=== PATIENT | female | born 1935 | race Caucasian/White ===

== ENCOUNTER 2016-10-30 16:07 | Observation (INO) | payer MEDICARE ==
[~2016-10-30 16:07] MED LIST: ASPIRIN EC81 MG PO; AUGMENTIN TAB875 MG PO; COMBIVENT0.074 GM/I INH; DIOVAN 80 MG TA80 MG PO; ISOSORBIDE MONO30 MG PO; LASIX TAB 20 MG20 MG PO; LOPRESSOR 25 MG25 MG PO; MIRALAX17 GM PO; NITROSTAT 0.40.4 MG SL; PERFOROMIS20 MCG/2 M NEB; PHENERGAN W/CO473 M1 PO; PREDNISONE 10 M10 MG PO; PROAIR HFA8.5 GM INH; PULMICORT0.5 MG/2 M NEB; ROXICODONE5 MG PO; SENOKOT-S TABL1 EACH PO; SINGULAIR10 MG PO; TYLENOL 325MG325 MG PO; VALSARTAN-HCTZ1 EAC1 PO
[2016-10-30 16:50] LABS: HEMOGLOBIN 11.8 gm/dl (12.3-15.3); RED BLOOD COUNT 3.88 M/UL (4.00-5.10); WHITE BLOOD COUNT 10.6 K/UL (4.5-11.0)
[2016-10-30 17:15] LABS: BUN/CREATININE RATIO 16 (0-10)
[2017-03-07] MEDS ORDERED: PROVENTIL HFA 61 INH INH (04:03)
[2017-03-07] MEDS ORDERED: DIUREX WATER P1 EACH PO ×2 (04:05→04:06)
== END 2016-10-31 13:30 | disposition home or self-care (01) ==
LOC: ER1 16:07 → ZEROF 20:48
PROVIDERS: Student in an Organized Health Care Education/Training Program; ADMIT Hospitalist
DX: S22.009A Unspecified fracture of unspecified thoracic vertebra, initial encounter for closed fracture (principal); J44.1 Chronic obstructive pulmonary disease with (acute) exacerbation; I71.4 Abdominal aortic aneurysm, without rupture; E78.5 Hyperlipidemia, unspecified; I27.2 Other secondary pulmonary hypertension; I11.0 Hypertensive heart disease with heart failure; I50.30 Unspecified diastolic (congestive) heart failure; E11.9 Type 2 diabetes mellitus without complications; J18.9 Pneumonia, unspecified organism; J90 Pleural effusion, not elsewhere classified; J45.909 Unspecified asthma, uncomplicated; F41.9 Anxiety disorder, unspecified; I49.5 Sick sinus syndrome; J98.11 Atelectasis; J96.91 Respiratory failure, unspecified with hypoxia; Z79.82 Long term (current) use of aspirin; Z79.891 Long term (current) use of opiate analgesic; Z79.899 Other long term (current) drug therapy; Z95.0 Presence of cardiac pacemaker; Z87.19 Personal history of other diseases of the digestive system; Z88.6 Allergy status to analgesic agent; Z88.8 Allergy status to other drugs, medicaments and biological substances; Z86.79 Personal history of other diseases of the circulatory system; Z87.891 Personal history of nicotine dependence; X58.XXXA Exposure to other specified factors, initial encounter
CPT/HCPCS: 36415; 80053; 81001; 82550; 82553; 83690; 83874; 84484; 85025; 93005; 94640; 94664; 96365; 96367; 96375; 96376; 99285; G0378; J0456; J0696; J1956; J2270; J2405; J7030; J7050; Q9962

== ENCOUNTER → 2016-11-02 | Outpatient (CLI) | payer MEDICARE ==
[~2016-11-02] MED LIST changes: +ALBUTEROL0.63 MG/3 INH; +ALENDRONATE SOD70 MG PO; +ASPIR-LOW81 MG PO; +BUSPIRONE HCL15 MG PO; +DIUREX WATER P1 EACH PO; +FLEXERIL 10 MG10 MG PO; +GABAPENTIN100 MG PO; +IPRAT-ALBUT 0.5-3 ML INH; +LASIX20 MG PO; +LIDODERM PATCH 51 EA EXT; +LORTAB 7.5-3251 EACH PO; +MEDROL DOSEPAK 24 MG PO; +NEURONTIN 100100 MG PO; +NORCO 5-325 TA1 EACH PO; +PERCOCET 5-3251 EACH PO; +PROVENTIL HFA 61 INH INH; +PULMICORT0.25 MG/1 INH; +SYMBICORT 160-1 INHA INH; +WELLBUTRIN SR100 MG PO
== END ==
LOC: OPSV2 11:00
DX: Z01.812 Encounter for preprocedural laboratory examination (principal); S22.089A Unspecified fracture of T11-T12 vertebra, initial encounter for closed fracture
CPT/HCPCS: 81001; 87077; 87086; 87186

== ENCOUNTER 2016-11-06 10:04 | Day surgery (SDC) | payer MEDICARE ==
[~2016-11-06] VITALS: Ht 157.5 cm; Wt 72.6 kg
[~2016-11-06 10:04] MED LIST changes: -ALBUTEROL0.63 MG/3 INH; -ALENDRONATE SOD70 MG PO; -ASPIR-LOW81 MG PO; -BUSPIRONE HCL15 MG PO; -DIUREX WATER P1 EACH PO; -FLEXERIL 10 MG10 MG PO; -GABAPENTIN100 MG PO; -IPRAT-ALBUT 0.5-3 ML INH; -LASIX20 MG PO; -LIDODERM PATCH 51 EA EXT; -LORTAB 7.5-3251 EACH PO; -MEDROL DOSEPAK 24 MG PO; -NEURONTIN 100100 MG PO; -NORCO 5-325 TA1 EACH PO; -PERCOCET 5-3251 EACH PO; -PROVENTIL HFA 61 INH INH; -PULMICORT0.25 MG/1 INH; -SYMBICORT 160-1 INHA INH; -WELLBUTRIN SR100 MG PO
[2016-11-06] MEDS ORDERED: PULMICORT0.25 MG/1 INH (11:32)
[2016-11-06] MEDS ORDERED: PERCOCET 5-3251 EACH PO (11:34)
[2016-11-07 05:56] LABS: HEMOGLOBIN 11.7 gm/dl (12.3-15.3); RED BLOOD COUNT 3.82 M/UL (4.00-5.10); WHITE BLOOD COUNT 10.3 K/UL (4.5-11.0)
[2016-11-07 06:12] LABS: BUN/CREATININE RATIO 13 (0-10)
[2016-11-08 04:26] LABS: HEMOGLOBIN 11.8 gm/dl (12.3-15.3); RED BLOOD COUNT 3.85 M/UL (4.00-5.10); WHITE BLOOD COUNT 10.3 K/UL (4.5-11.0)
[2016-11-08 04:50] LABS: BUN/CREATININE RATIO 18 (0-10)
[2017-03-07] MEDS ORDERED: PROVENTIL HFA 61 INH INH (04:03)
[2017-03-07] MEDS ORDERED: DIUREX WATER P1 EACH PO ×2 (04:05→04:06)
== END 2016-11-08 16:50 | disposition home or self-care (01) ==
LOC: OR 10:04 → M/S 16:16 → OR 11-08 16:50
PROVIDERS: Orthopaedic Surgery
PROC: 0PU43JZ Supplement Thoracic Vertebra with Synthetic Substitute, Percutaneous Approach (ICD-10-PCS; 2016-11-06)
PROC: 0PS43ZZ Reposition Thoracic Vertebra, Percutaneous Approach (ICD-10-PCS; principal; 2016-11-06 15:00)
DX: S22.089A Unspecified fracture of T11-T12 vertebra, initial encounter for closed fracture (principal); M81.0 Age-related osteoporosis without current pathological fracture; J44.9 Chronic obstructive pulmonary disease, unspecified; J45.909 Unspecified asthma, uncomplicated; J96.91 Respiratory failure, unspecified with hypoxia; I71.2 Thoracic aortic aneurysm, without rupture; I49.5 Sick sinus syndrome; I47.2 Ventricular tachycardia; I27.2 Other secondary pulmonary hypertension; I10 Essential (primary) hypertension; I07.1 Rheumatic tricuspid insufficiency; Z87.19 Personal history of other diseases of the digestive system; Z79.82 Long term (current) use of aspirin; Z79.899 Other long term (current) drug therapy; Z95.0 Presence of cardiac pacemaker; Z88.6 Allergy status to analgesic agent; Z88.8 Allergy status to other drugs, medicaments and biological substances; Z87.440 Personal history of urinary (tract) infections; X58.XXXA Exposure to other specified factors, initial encounter
CPT/HCPCS: 36415; 80048; 81001; 85025; 94640; 94664; 97116; 97530; J0690; J2250; J2270; J2405; J3010; J7030; J7040; J7120; Q9962

== ENCOUNTER → 2016-11-14 | Outpatient (CLI) | payer MEDICARE ==
[~2016-11-14] MED LIST changes: +ALBUTEROL0.63 MG/3 INH; +ALENDRONATE SOD70 MG PO; +ASPIR-LOW81 MG PO; +BUSPIRONE HCL15 MG PO; +DIUREX WATER P1 EACH PO; +FLEXERIL 10 MG10 MG PO; +GABAPENTIN100 MG PO; +IPRAT-ALBUT 0.5-3 ML INH; +LASIX20 MG PO; +LIDODERM PATCH 51 EA EXT; +LORTAB 7.5-3251 EACH PO; +MEDROL DOSEPAK 24 MG PO; +NEURONTIN 100100 MG PO; +NORCO 5-325 TA1 EACH PO; +PERCOCET 5-3251 EACH PO; +PROVENTIL HFA 61 INH INH; +PULMICORT0.25 MG/1 INH; +SYMBICORT 160-1 INHA INH; +WELLBUTRIN SR100 MG PO
== END ==
LOC: KOH-I 14:11
DX: S32.050A Wedge compression fracture of fifth lumbar vertebra, initial encounter for closed fracture (principal); S32.049A Unspecified fracture of fourth lumbar vertebra, initial encounter for closed fracture; M47.816 Spondylosis without myelopathy or radiculopathy, lumbar region
CPT/HCPCS: 72131

== ENCOUNTER → 2016-11-17 | Outpatient (CLI) | payer MEDICARE | LOC: EXRD 09:30 → KOH-I 11:04 | DX: S32.040A Wedge compression fracture of fourth lumbar vertebra, initial encounter for closed fracture (principal); M81.0 Age-related osteoporosis without current pathological fracture; M85.88 Other specified disorders of bone density and structure, other site | CPT/HCPCS: 77080 ==

== ENCOUNTER 2016-11-20 10:45 | Observation (INO) | payer MEDICARE ==
[~2016-11-20] VITALS: Ht 157.5 cm; Wt 75.8 kg
[~2016-11-20 10:45] MED LIST changes: -ALBUTEROL0.63 MG/3 INH; -ALENDRONATE SOD70 MG PO; -ASPIR-LOW81 MG PO; -BUSPIRONE HCL15 MG PO; -DIUREX WATER P1 EACH PO; -FLEXERIL 10 MG10 MG PO; -GABAPENTIN100 MG PO; -IPRAT-ALBUT 0.5-3 ML INH; -LASIX20 MG PO; -LIDODERM PATCH 51 EA EXT; -LORTAB 7.5-3251 EACH PO; -MEDROL DOSEPAK 24 MG PO; -NEURONTIN 100100 MG PO; -NORCO 5-325 TA1 EACH PO; -PROVENTIL HFA 61 INH INH; -SYMBICORT 160-1 INHA INH; -WELLBUTRIN SR100 MG PO
[2016-11-20 10:46] LABS: HEMOGLOBIN 12.3 gm/dl (12.3-15.3); RED BLOOD COUNT 4.07 M/UL (4.00-5.10); WHITE BLOOD COUNT 11.7 K/UL (4.5-11.0)
[2016-11-20 11:49] LABS: BUN/CREATININE RATIO 20 (0-10)
[2016-11-21 04:40] LABS: HEMOGLOBIN 11.6 gm/dl (12.3-15.3); RED BLOOD COUNT 3.84 M/UL (4.00-5.10); WHITE BLOOD COUNT 11.2 K/UL (4.5-11.0)
[2016-11-21 05:15] LABS: BUN/CREATININE RATIO 16 (0-10)
[2016-11-24] MEDS ORDERED: FLEXERIL 10 MG10 MG PO (12:43)
[2017-03-07] MEDS ORDERED: PROVENTIL HFA 61 INH INH (04:03)
[2017-03-07] MEDS ORDERED: DIUREX WATER P1 EACH PO ×2 (04:05→04:06)
== END 2016-11-24 22:10 | disposition home or self-care (01) ==
LOC: OR 10:45 → ZEROF 16:15 → OR 16:15 → M/S 16:15 → ZEROF 11-23 10:30 → OR 11-23 10:30 → M/S 11-24 22:10
PROVIDERS: ADMIT Orthopaedic Surgery
PROC: 0QU03JZ Supplement Lumbar Vertebra with Synthetic Substitute, Percutaneous Approach (ICD-10-PCS; 2016-11-20)
PROC: 0QB03ZX Excision of Lumbar Vertebra, Percutaneous Approach, Diagnostic (ICD-10-PCS; 2016-11-20)
PROC: 0QS03ZZ Reposition Lumbar Vertebra, Percutaneous Approach (ICD-10-PCS; principal; 2016-11-20 12:30)
DX: M80.08XA Age-related osteoporosis with current pathological fracture, vertebra(e), initial encounter for fracture (principal); J44.9 Chronic obstructive pulmonary disease, unspecified; I27.2 Other secondary pulmonary hypertension; J96.91 Respiratory failure, unspecified with hypoxia; J45.909 Unspecified asthma, uncomplicated; I10 Essential (primary) hypertension; E78.5 Hyperlipidemia, unspecified; E11.9 Type 2 diabetes mellitus without complications; Z79.899 Other long term (current) drug therapy; Z79.891 Long term (current) use of opiate analgesic; Z86.79 Personal history of other diseases of the circulatory system; Z87.19 Personal history of other diseases of the digestive system; Z99.81 Dependence on supplemental oxygen; Z95.0 Presence of cardiac pacemaker; Z79.82 Long term (current) use of aspirin
CPT/HCPCS: 36415; 80048; 82550; 82553; 83036; 84484; 85025; 85027; 93005; 94640; 94664; 97110; 97116; 97530; G0378; J0690; J1100; J2270; J2405; J7120; Q9962

== ENCOUNTER 2016-12-04 09:51 | Day surgery (SDC) | payer MEDICARE ==
[~2016-12-04] VITALS: Ht 157.5 cm; Wt 90.3 kg
[~2016-12-04 09:51] MED LIST changes: +FLEXERIL 10 MG10 MG PO
[2016-12-05 06:38] LABS: HEMOGLOBIN 12.8 gm/dl (12.3-15.3); RED BLOOD COUNT 4.21 M/UL (4.00-5.10); WHITE BLOOD COUNT 12.1 K/UL (4.5-11.0)
[2016-12-05 07:56] LABS: BUN/CREATININE RATIO 17 (0-10)
[2017-03-07] MEDS ORDERED: PROVENTIL HFA 61 INH INH (04:03)
[2017-03-07] MEDS ORDERED: DIUREX WATER P1 EACH PO ×2 (04:05→04:06)
== END 2016-12-05 14:07 | disposition home or self-care (01) ==
LOC: OR 09:51 → M/S 09:51 → OR 12:15 → M/S 15:17 → OR 12-05 14:07
PROVIDERS: Orthopaedic Surgery
PROC: 0PU43JZ Supplement Thoracic Vertebra with Synthetic Substitute, Percutaneous Approach (ICD-10-PCS; 2016-12-04)
PROC: 0PB43ZX Excision of Thoracic Vertebra, Percutaneous Approach, Diagnostic (ICD-10-PCS; 2016-12-04)
PROC: 0PS43ZZ Reposition Thoracic Vertebra, Percutaneous Approach (ICD-10-PCS; principal; 2016-12-04 12:15)
DX: S22.089A Unspecified fracture of T11-T12 vertebra, initial encounter for closed fracture (principal); M81.0 Age-related osteoporosis without current pathological fracture; J44.9 Chronic obstructive pulmonary disease, unspecified; J45.909 Unspecified asthma, uncomplicated; J96.91 Respiratory failure, unspecified with hypoxia; I71.4 Abdominal aortic aneurysm, without rupture; I49.5 Sick sinus syndrome; I27.2 Other secondary pulmonary hypertension; I10 Essential (primary) hypertension; G89.29 Other chronic pain; Z87.19 Personal history of other diseases of the digestive system; Z95.0 Presence of cardiac pacemaker; Z79.82 Long term (current) use of aspirin; Z79.891 Long term (current) use of opiate analgesic; Z79.899 Other long term (current) drug therapy; Z99.81 Dependence on supplemental oxygen
CPT/HCPCS: 20240; 80048; 85025; 94640; 94664; J0690; J1100; J2001; J2710; J3010; J7120; Q9962

== ENCOUNTER → 2016-12-22 | Outpatient (CLI) | payer MEDICARE ==
[~2016-12-22] MED LIST changes: +ALBUTEROL0.63 MG/3 INH; +ALENDRONATE SOD70 MG PO; +ASPIR-LOW81 MG PO; +BUSPIRONE HCL15 MG PO; +DIUREX WATER P1 EACH PO; +GABAPENTIN100 MG PO; +IPRAT-ALBUT 0.5-3 ML INH; +LASIX20 MG PO; +LIDODERM PATCH 51 EA EXT; +LORTAB 7.5-3251 EACH PO; +MEDROL DOSEPAK 24 MG PO; +NEURONTIN 100100 MG PO; +NORCO 5-325 TA1 EACH PO; +PROVENTIL HFA 61 INH INH; +SYMBICORT 160-1 INHA INH; +WELLBUTRIN SR100 MG PO
== END ==
LOC: LAB 14:38
DX: M81.0 Age-related osteoporosis without current pathological fracture (principal)
CPT/HCPCS: 36415; 82310; 84439; 84443

== ENCOUNTER → 2016-12-26 | Outpatient (CLI) | payer MEDICARE | LOC: KOH-I 14:00 | DX: S22.070A Wedge compression fracture of T9-T10 vertebra, initial encounter for closed fracture (principal); J98.11 Atelectasis; R91.8 Other nonspecific abnormal finding of lung field; S22.089A Unspecified fracture of T11-T12 vertebra, initial encounter for closed fracture; S32.019A Unspecified fracture of first lumbar vertebra, initial encounter for closed fracture | CPT/HCPCS: 72128 ==

== ENCOUNTER 2017-01-07 14:28 | Inpatient (IN) | payer MEDICARE ==
[~2017-01-07] VITALS: Ht 157.5 cm; Wt 77.8 kg
[~2017-01-07 14:28] MED LIST changes: -ALBUTEROL0.63 MG/3 INH; -ALENDRONATE SOD70 MG PO; -ASPIR-LOW81 MG PO; -BUSPIRONE HCL15 MG PO; -DIUREX WATER P1 EACH PO; -GABAPENTIN100 MG PO; -IPRAT-ALBUT 0.5-3 ML INH; -LASIX20 MG PO; -LIDODERM PATCH 51 EA EXT; -LORTAB 7.5-3251 EACH PO; -MEDROL DOSEPAK 24 MG PO; -NEURONTIN 100100 MG PO; -NORCO 5-325 TA1 EACH PO; -PROVENTIL HFA 61 INH INH; -SYMBICORT 160-1 INHA INH; -WELLBUTRIN SR100 MG PO
[2017-01-07 15:17] LABS: HEMOGLOBIN 12.4 gm/dl (12.3-15.3); RED BLOOD COUNT 4.04 M/UL (4.00-5.10)
[2017-01-07 15:36] LABS: BUN/CREATININE RATIO 21 (0-10)
[2017-01-08 10:52] LABS: HEMOGLOBIN 11.9 gm/dl (12.3-15.3); RED BLOOD COUNT 3.9 M/UL (4.00-5.10)
[2017-01-08] MEDS ORDERED: ALENDRONATE SOD70 MG PO (15:08)
[2017-01-08] MEDS ORDERED: GABAPENTIN100 MG PO (15:09)
[2017-01-08] MEDS ORDERED: LORTAB 7.5-3251 EACH PO (15:10)
[2017-01-08] MEDS ORDERED: NEURONTIN 100100 MG PO (15:10)
[2017-01-08] MEDS ORDERED: BUSPIRONE HCL15 MG PO (15:13)
[2017-01-09 06:01] LABS: HEMOGLOBIN 11.2 gm/dl (12.3-15.3); RED BLOOD COUNT 3.7 M/UL (4.00-5.10)
[2017-01-11 06:32] LABS: HEMOGLOBIN 11.7 gm/dl (12.3-15.3); RED BLOOD COUNT 3.88 M/UL (4.00-5.10); WHITE BLOOD COUNT 15.5 K/UL (4.5-11.0)
[2017-01-13 05:31] LABS: HEMOGLOBIN 12.1 gm/dl (12.3-15.3); RED BLOOD COUNT 3.93 M/UL (4.00-5.10); WHITE BLOOD COUNT 12.9 K/UL (4.5-11.0)
[2017-01-14 06:32] LABS: HEMOGLOBIN 12.5 gm/dl (12.3-15.3); RED BLOOD COUNT 4.14 M/UL (4.00-5.10); WHITE BLOOD COUNT 12.2 K/UL (4.5-11.0)
[2017-01-16 04:12] LABS: HEMOGLOBIN 12.7 gm/dl (12.3-15.3); RED BLOOD COUNT 4.19 M/UL (4.00-5.10); WHITE BLOOD COUNT 14.4 K/UL (4.5-11.0)
[2017-01-17 06:28] LABS: BUN/CREATININE RATIO 44 (0-10)
[2017-01-17] MEDS ORDERED: SYMBICORT 160-1 INHA INH (12:49)
[2017-01-17] MEDS ORDERED: MEDROL DOSEPAK 24 MG PO (12:50)
[2017-01-17] MEDS ORDERED: PROAIR HFA8.5 GM INH (12:51)
[2017-01-17] MEDS ORDERED: WELLBUTRIN SR100 MG PO (12:51)
[2017-01-17] MEDS ORDERED: IPRAT-ALBUT 0.5-3 ML INH (12:53)
[2017-01-17] MEDS ORDERED: LIDODERM PATCH 51 EA EXT (12:53)
[2017-03-07] MEDS ORDERED: PROVENTIL HFA 61 INH INH (04:03)
[2017-03-07] MEDS ORDERED: DIUREX WATER P1 EACH PO ×2 (04:05→04:06)
== END 2017-01-17 14:41 | disposition home health service (06) | DRG 292 ==
LOC: ER1 14:28 → ZEROF 17:34 → M/S 17:34
PROVIDERS: Emergency Medicine; Internal Medicine; ADMIT Emergency Medicine
DX: I11.0 Hypertensive heart disease with heart failure (principal); J45.901 Unspecified asthma with (acute) exacerbation; J96.11 Chronic respiratory failure with hypoxia; I31.3 Pericardial effusion (noninflammatory); J98.11 Atelectasis; I50.33 Acute on chronic diastolic (congestive) heart failure; I27.2 Other secondary pulmonary hypertension; J20.9 Acute bronchitis, unspecified; I49.5 Sick sinus syndrome; I71.2 Thoracic aortic aneurysm, without rupture; R07.89 Other chest pain; I07.1 Rheumatic tricuspid insufficiency; M94.0 Chondrocostal junction syndrome [Tietze]; G89.29 Other chronic pain; M54.9 Dorsalgia, unspecified; E66.9 Obesity, unspecified; F32.9 Major depressive disorder, single episode, unspecified; Z95.0 Presence of cardiac pacemaker; Z77.22 Contact with and (suspected) exposure to environmental tobacco smoke (acute) (chronic); Z87.311 Personal history of (healed) other pathological fracture; Z72.3 Lack of physical exercise; Z68.31 Body mass index [BMI] 31.0-31.9, adult; Z99.81 Dependence on supplemental oxygen; Z79.51 Long term (current) use of inhaled steroids; Z79.891 Long term (current) use of opiate analgesic; Z79.82 Long term (current) use of aspirin; Z79.899 Other long term (current) drug therapy; Z88.6 Allergy status to analgesic agent; Z88.5 Allergy status to narcotic agent; Z98.890 Other specified postprocedural states; Z82.49 Family history of ischemic heart disease and other diseases of the circulatory system; Z83.3 Family history of diabetes mellitus
CPT/HCPCS: ECHO; 36415; 71010; 71020; 71250; 80048; 80053; 81001; 82550; 82553; 83735; 83874; 83880; 84439; 84443; 84484; 85025; 85027; 85379; 87040; 87070; 87205; 93005; 93306; 94640; 94664; 96365; 96367; 96375; 96376; 97110; 97116; 97530; 97535; 99285; J0696; J1650; J1885; J1940; J1956; J2270; J2405; J2920; J2930; J7030; J7050

== ENCOUNTER 2017-01-21 19:57 | Inpatient (IN) | payer MEDICARE, MEDICAID ==
[~2017-01-21] VITALS: Ht 157.5 cm; Wt 77.3 kg
[~2017-01-21 19:57] MED LIST changes: +ALENDRONATE SOD70 MG PO; +BUSPIRONE HCL15 MG PO; +GABAPENTIN100 MG PO; +IPRAT-ALBUT 0.5-3 ML INH; +LIDODERM PATCH 51 EA EXT; +LORTAB 7.5-3251 EACH PO; +MEDROL DOSEPAK 24 MG PO; +NEURONTIN 100100 MG PO; +SYMBICORT 160-1 INHA INH; +WELLBUTRIN SR100 MG PO
[2017-01-21 21:00] LABS: HEMOGLOBIN 13.1 gm/dl (12.3-15.3); RED BLOOD COUNT 4.27 M/UL (4.00-5.10); WHITE BLOOD COUNT 28.2 K/UL (4.5-11.0)
[2017-01-22 00:28] LABS: BUN/CREATININE RATIO 39 (0-10)
[2017-01-22 07:39] LABS: HEMOGLOBIN 12.6 gm/dl (12.3-15.3); RED BLOOD COUNT 4.08 M/UL (4.00-5.10)
[2017-01-22 07:43] LABS: WHITE BLOOD COUNT 18.2 K/UL (4.5-11.0)
[2017-01-22 07:47] LABS: BUN/CREATININE RATIO 37 (0-10)
[2017-01-22] MEDS ORDERED: ALBUTEROL0.63 MG/3 INH (10:02)
[2017-01-22] MEDS ORDERED: ASPIR-LOW81 MG PO (10:27)
[2017-01-23 03:30] LABS: HEMOGLOBIN 12.4 gm/dl (12.3-15.3); RED BLOOD COUNT 3.99 M/UL (4.00-5.10)
[2017-01-23 03:38] LABS: WHITE BLOOD COUNT 23.9 K/UL (4.5-11.0)
[2017-01-23 03:54] LABS: BUN/CREATININE RATIO 35 (0-10)
[2017-01-24 03:56] LABS: HEMOGLOBIN 11.3 gm/dl (12.3-15.3); RED BLOOD COUNT 3.66 M/UL (4.00-5.10); WHITE BLOOD COUNT 21.1 K/UL (4.5-11.0)
[2017-01-24 04:14] LABS: BUN/CREATININE RATIO 43 (0-10)
[2017-01-25 05:58] LABS: HEMOGLOBIN 11.3 gm/dl (12.3-15.3); RED BLOOD COUNT 3.65 M/UL (4.00-5.10); WHITE BLOOD COUNT 17.6 K/UL (4.5-11.0)
[2017-01-25 06:38] LABS: BUN/CREATININE RATIO 41 (0-10)
[2017-01-26 04:26] LABS: HEMOGLOBIN 11.6 gm/dl (12.3-15.3); RED BLOOD COUNT 3.81 M/UL (4.00-5.10)
[2017-01-26 04:27] LABS: WHITE BLOOD COUNT 11.7 K/UL (4.5-11.0)
[2017-01-26 04:50] LABS: BUN/CREATININE RATIO 45 (0-10)
[2017-01-26] MEDS ORDERED: AUGMENTIN TAB875 MG PO (10:36)
[2017-01-26] MEDS ORDERED: FLEXERIL 10 MG10 MG PO (10:37)
[2017-01-26] MEDS ORDERED: LASIX20 MG PO (10:38)
[2017-01-26] MEDS ORDERED: LOPRESSOR 25 MG25 MG PO (10:39)
[2017-01-26] MEDS ORDERED: NORCO 5-325 TA1 EACH PO (10:39)
[2017-03-07] MEDS ORDERED: PROVENTIL HFA 61 INH INH (04:03)
[2017-03-07] MEDS ORDERED: DIUREX WATER P1 EACH PO ×2 (04:05→04:06)
== END 2017-01-26 15:58 | disposition home or self-care (01) | DRG 871 ==
LOC: ER1 19:57 → ZEROF 22:45 → CCU 22:45 → MED SURG 4 01-24 13:39
PROVIDERS: Emergency Medicine; Family Medicine; Hospitalist; ADMIT Internal Medicine
DX: A41.9 Sepsis, unspecified organism (principal); J18.9 Pneumonia, unspecified organism; J96.21 Acute and chronic respiratory failure with hypoxia; I50.33 Acute on chronic diastolic (congestive) heart failure; J44.0 Chronic obstructive pulmonary disease with (acute) lower respiratory infection; J44.1 Chronic obstructive pulmonary disease with (acute) exacerbation; I11.0 Hypertensive heart disease with heart failure; I27.2 Other secondary pulmonary hypertension; I07.1 Rheumatic tricuspid insufficiency; M81.0 Age-related osteoporosis without current pathological fracture; Z87.310 Personal history of (healed) osteoporosis fracture; R07.89 Other chest pain; S39.011A Strain of muscle, fascia and tendon of abdomen, initial encounter; X50.1XXA Overexertion from prolonged static or awkward postures, initial encounter; Y93.89 Activity, other specified; G89.29 Other chronic pain; M54.9 Dorsalgia, unspecified; Z95.0 Presence of cardiac pacemaker; Z99.81 Dependence on supplemental oxygen; Z79.82 Long term (current) use of aspirin; Z79.899 Other long term (current) drug therapy; Z88.6 Allergy status to analgesic agent; Z88.5 Allergy status to narcotic agent
CPT/HCPCS: ECHO; 36415; 36600; 71010; 80048; 80053; 82550; 82553; 82803; 83605; 83735; 83874; 83880; 84484; 85025; 85027; 85610; 85730; 87040; 87081; 87278; 93005; 93306; 94640; 94664; 96365; 96366; 96367; 96372; 96375; 96376; 99291; J1650; J1885; J1940; J1956; J2270; J2405; J2543; J2920; J2930; J3370; J7030; J7050; J7070; J7509

== ENCOUNTER 2017-04-21 16:03 | Emergency (ER) | payer MEDICARE ==
[~2017-04-21 16:03] MED LIST changes: +ALBUTEROL0.63 MG/3 INH; +ASPIR-LOW81 MG PO; +DIUREX WATER P1 EACH PO; +LASIX20 MG PO; +NORCO 5-325 TA1 EACH PO; +PROVENTIL HFA 61 INH INH
[2017-04-21 17:41] LABS: HEMOGLOBIN 12.1 gm/dl (12.3-15.3); RED BLOOD COUNT 3.81 M/UL (4.00-5.10); WHITE BLOOD COUNT 10.6 K/UL (4.5-11.0)
[2017-04-21 17:52] LABS: BUN/CREATININE RATIO 24 (0-10)
== END 2017-04-21 20:30 | disposition home or self-care (01) ==
LOC: ER1 16:03
PROVIDERS: Family Medicine
DX: J44.9 Chronic obstructive pulmonary disease, unspecified (principal); R60.0 Localized edema; Z99.81 Dependence on supplemental oxygen; Z79.891 Long term (current) use of opiate analgesic; Z79.899 Other long term (current) drug therapy
CPT/HCPCS: 36415; 71250; 80053; 82550; 82553; 83874; 83880; 84484; 85025; 85610; 85730; 93005; 99285; Q0162